=== PATIENT | male | born 1960 | race Caucasian/White ===

== ENCOUNTER → 2017-08-04 | Outpatient (CLI) | payer OTHER ==
[~2017-08-04] MED LIST: ASCO10002 PO; ASPI-482 PO; ATOR20TA58 PO; DEXL60CA2 PO; LACT1CAP29 PO; LISI1TAB7 PO; MULT1TAB52 PO; RANI150C PO; TEST5GEL29 TD
--- NOTE | 2017-08-04 14:59 | EKG ---
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
[2017-08-04 15:37] LABS: BASO # 0.1 x10^3/uL (0.0-0.2); BASO % 1 % (0-3); EOS % 4 % (0-3); HEMATOCRIT 44.9 % (39.0-53.0); HEMOGLOBIN 15.2 g/dL (13.0-17.5); LYMPH # 1.4 x10^3/uL (1.0-4.8); LYMPH % 19 % (24-48); MEAN CORPUSCULAR HEMOGLOBIN 29 pg (25-35); MEAN CORPUSCULAR HGB CONC 34 g/dL (31-37); MEAN CORPUSCULAR VOLUME 86 fL (79-100); MONO % 6 % (0-9); NEUT % 69 % (31-73); PLATELET COUNT 278 x10^3/uL (140-400); RED BLOOD COUNT 5.25 x10^6/uL (4.30-5.70); RED CELL DISTRIBUTION WIDTH 13.3 % (11.5-14.5); WHITE BLOOD COUNT 7.5 x10^3/uL (4.0-11.0)
[2017-08-04 16:15] LABS: ALBUMIN 4.1 g/dL (3.4-5.0); ALBUMIN/GLOBULIN RATIO 1.1 (1.0-1.7); CALCIUM 9.2 mg/dL (8.5-10.1); CREATININE 0.9 mg/dL (0.7-1.3); GFR 87.3; POTASSIUM 3.7 mmol/L (3.5-5.1); TOTAL BILIRUBIN 0.6 mg/dL (0.2-1.0); TOTAL PROTEIN 7.8 g/dL (6.4-8.2)
== END | disposition home or self-care (01) ==
LOC: SURGPAT 13:31
PROVIDERS: ATTEND Neurological Surgery
DX: Z01.818 Encounter for other preprocedural examination (principal); M48.061 Spinal stenosis, lumbar region without neurogenic claudication
CPT/HCPCS: 36415; 80053; 85025; 87641; 93005

== ENCOUNTER 2017-08-25 07:14 | Day surgery (SDC) | payer OTHER ==
--- NOTE | 2017-08-23 15:55 | PREOP HP ---
DATE OF SERVICE: 08/25/2017 HISTORY OF PRESENT ILLNESS: The patient is a pleasant 57-year-old man who is having difficulty with low back pain and pain which radiates into his left leg. The pain tends to radiate into the left anterior leg and thigh. He feels as though there is weakness in his left leg. He also has intermittent pain in the right hip region. His problems have been present for about 10 years, but have been slowly worsening. He says currently his pain is a 1/10, but that it has become a 7/10 at its worse. He says at the end of the day the problem is much worse than at the beginning of the day. Stretching and exercising seems to help him. He takes Advil for pain. A few years ago he underwent epidural steroid injections. PAST MEDICAL HISTORY: Hypertension. PAST SURGICAL HISTORY: A CTR in 1996 and CTR in 1997. FAMILY HISTORY: Hypertension. 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 . Exercises 2 times a week. Denies substance abuse. Denies tobacco use. Has one drink daily. Drinks tea daily. ALLERGIES: No known drug allergies. CURRENT MEDICATIONS: Atorvastatin, ranitidine, lisinopril, Dexilant, Testim, baby aspirin, multivitamin, and Advil. REVIEW OF SYSTEMS: A 12-point review of systems was obtained and is noncontributory except for that mentioned above. NEUROSURGERY EXAMINATION: GENERAL APPEARANCE: Alert, pleasant, no acute distress. HEAD: Normocephalic and atraumatic. SKIN: Warm and dry. MUSCULOSKELETAL: Lumbar paraspinal muscle bulk is normal, restricted range of motion of the lumbar spine, [id number] tenderness of lower lumbar spine with palpation, normal range of motion of the lower extremities bilaterally. EXTREMITIES: No clubbing, cyanosis or edema. NEUROLOGIC: Alert and oriented x 3, normal recent and remote memory, strength 5/5 in bilateral lower extremities, sensory was intact to light touch in bilateral lower extremities, reflexes were 1+ right knee jerk, absent left knee jerk, trace ankle jerks bilaterally, negative straight leg raising bilaterally, abnormal gait favoring his left leg. IMAGING: Reviewed. I reviewed a lumbar MRI scan. There are degenerative changes throughout the lumbar spine. At L4-L5 on the left there is foraminal disk protrusion with severe left foraminal narrowing. ASSESSMENT: Intervertebral disk disorders with radiculopathy, lumbar region. PLAN: I believe his left lumbar radicular symptoms are related to the foraminal disk protrusions at L4-L5 on the left. We spoke about options including epidural steroid injections. I discussed transfacet exposure with decompression. I explained that following that type of surgery the pain can develop, problems with chronic back pain and require further surgery including an instrumented fusion. I spoke about the technique of the operation and the rationale for decompressing the nerve root in the foramen. I spoke about HIM, about the risks. He understands. He would like to go ahead. We will make the arrangements. JOSEPH ALVARENGA MD DR: SUSAN/guadalupe JOB#: [id number] / [id number]
[~2017-08-25] VITALS: Ht 167.6 cm; Wt 79.4 kg
[~2017-08-25 07:14] MED LIST changes: +BACITRACIN 50,000 UNIT in IV NORMAL SALINE 1000ML BAG 1,000 ML IRR ONE; +HYDROmorphone 2 MG/ML VIAL IV PRN; +IV RINGERS,LACTATED 1000ML 1,000 ML IV SCH; +LIDOCAINE 1% PF 2 ML VIAL. ID PRN; +MORPHINE SULFATE 2 MG/ML DISP.SYRIN. IV PRN; +ONDANSETRON PF 4 MG/2 ML VIAL. IV PRN; +PROCHLORPERAZINE 10 MG/2 ML VIAL. IV PRN; +fentaNYL PF VIAL 100 MCG/2 ML VIAL IV PRN
[2017-08-25] MEDS ORDERED: GELATIN SPONGE SIZE 100. ONE (07:33)
[2017-08-25] MEDS ORDERED: KETOROLAC 60 MG/2 ML INJ FOR OR. ONE (07:34)
[2017-08-25] MEDS ORDERED: THROMBIN TOPICAL 20,000 UNIT SPRAY.SYRN KIT TP ONE ×3 (07:34→09:22)
[2017-08-25] MEDS ORDERED: BUPIVAC MPF-EPI 0.5%-1:200000 30 ML VIAL. ONE (07:34)
[2017-08-25] MEDS ORDERED: SILD50TA PO (07:41)
[2017-08-25] MEDS ORDERED: PROPOFOL 50 ML IV ONE ×2 (08:05→10:02)
[2017-08-25] MEDS ORDERED: DEXAMETHASONE SOD PHOS 20 MG/5 ML VIAL. ONE (08:05)
[2017-08-25] MEDS ORDERED: PROPOFOL 20 ML IV ONE (08:05)
[2017-08-25] MEDS ORDERED: ONDANSETRON PF 4 MG/2 ML VIAL. ONE (08:05)
[2017-08-25] MEDS ORDERED: LIDOCAINE 2% PF Vial for OR 5 ML VIAL. ONE (08:05)
[2017-08-25] MEDS ORDERED: MIDAZOLAM HCL/PF 2 MG/2 ML VIAL. ONE (08:06)
[2017-08-25] MEDS ORDERED: REMIFENTANIL 2 MG VIAL. IV ONE (08:06)
[2017-08-25] MEDS ORDERED: DESFLURANE > 120 MINUTES IH ONE (08:06)
[2017-08-25] MEDS ORDERED: ROCURONIUM 50 MG/5 ML VIAL. ONE (08:06)
[2017-08-25] MEDS ORDERED: PHENYLEPHRINE 10 MG/ML VIAL. ONE (08:06)
[2017-08-25] MEDS ORDERED: 0.9 % SODIUM CHLORIDE 50 ML VIAL. IJ ONE (08:06)
[2017-08-25] MEDS ORDERED: MINERAL OIL/PETROLATUM,WHITE OPHTH OINT 3.5GM TUBE. ONE (08:17)
[2017-08-25] MEDS ORDERED: GELATIN SPONGE SIZE 100. TP ONE (09:15)
[2017-08-25] MEDS ORDERED: KETOROLAC 60 MG/2 ML INJ FOR OR. INJ ONE (09:15)
[2017-08-25] MEDS ORDERED: BUPIVAC MPF-EPI 0.5%-1:200000 30 ML VIAL. INJ ONE ×2 (09:15→09:22)
[2017-08-25] MEDS ORDERED: GLYCOPYRROLATE 1 MG/5 ML VIAL. ONE (09:19)
[2017-08-25] MEDS ORDERED: NEOSTIGMINE 10 MG/10 ML VIAL. ONE (10:42)
[2017-08-25] MEDS ORDERED: fentaNYL PF VIAL 100 MCG/2 ML VIAL ONE (10:47)
--- NOTE | 2017-08-25 11:12 | DISCH ---
DISCHARGE INSTRUCTIONS Condition on Discharge Condition on Discharge: Stable Activity After Discharge Activity Instructions for Disc: Activity as tolerated, Avoid exertion Other activity instructions: no driving for a week Lifting Instructions after Dis: No heavy lifting, No pulling or pushing, Do not lift >10 pounds Diet after Discharge Additional Diet Restrictions: resume home diet Wound Incision Care Wound/Incision Care: Ice to area for comfort Other wound/incision instructi: may remove dressing in 48 hrs if dry then may shower-no soaking Contacting the DRTanner after DC Call your doctor for: Concerns you may have Follow-Up Follow up with: Dr. Alvarenga's nurse in 2 weeks [phone] JOSEPH ALVARENGA MD Aug 25, 2017 11:12
[2017-08-25] MEDS ORDERED: DOCU-109 PO (11:21)
[2017-08-25] MEDS ORDERED: HYDR-2762 PO (11:21)
[2017-08-25] MEDS ORDERED: METH-38 PO (11:21)
[2017-08-25] MEDS ORDERED: HYDROcodone/APAP 7.5/325MG 1 TAB TABLET PO PRN (11:45)
--- NOTE | 2017-08-25 12:05 | OP ---
DATE OF SURGERY: 08/25/2017 PREOPERATIVE DIAGNOSES: Herniated lumbar disc/foraminal disc herniation, L4-L5 on the left with L4 and L5 radiculopathy. POSTOPERATIVE DIAGNOSES: Herniated lumbar disc/foraminal disc herniation, L4-L5 on the left with L4 and L5 radiculopathy. OPERATION PERFORMED: Hemilaminotomy and microdiskectomy, L4-L5 plus transfacet exposure with decompression of the L4 nerve root and far lateral disc removal. The operation was done with the EMG monitoring, fluoroscopy and microscopic dissection. SURGEON: Edward Alvarenga M.D. MAKEUP SALES ADVISOR: Matias Mcdonough M.D.assisted with the surgery, assisted with the exposure, the microdiscectomy and decompression as well as the closure. OPERATIVE INDICATIONS: The patient is a very pleasant 57-year-old man who developed intractable back and left leg pain which failed conservative measures. On imaging studies, he had the above-mentioned findings and I recommended lumbar microsurgery after he failed conservative measures. He understood the surgery and the risks. He wished to go ahead. DESCRIPTION OF PROCEDURE: Following general endotracheal anesthesia, the patient was positioned prone on the Ciro frame. His lumbar region was prepped and draped in the standard fashion. EVANGELINA hose and AV impulse boots were applied for DVT prophylaxis. The microscope was draped. Fluoroscopy was draped and brought into the field. Monitoring was established. Ancef 2 grams was given less than 1 hour prior to initiation of surgery. A midline incision was made directly over the L4-L5 interspace. I dissected down the skin and subcutaneous tissue, reflected the paraspinal muscles quite far laterally on the left and then brought in the microscope. I confirmed my position fluoroscopically. I burred down a generous standard hemilaminotomy and then worked superiorly until I encountered the L4 root, which was lifted superiorly, as I followed it laterally performing a transfacet decompression. As I worked laterally, I found that there was disc at L4-L5 laterally plus large osteophytes along the inferior edge of L4 laterally, markedly compressing the root. As I worked out farther and farther laterally, I used a high-speed air drill to thin this large spur and I was able to push and break this down inferiorly, freeing up the L4 root, as I continued working laterally, removing disc material and lateral disc bulge. I found I was able to fully decompress the L4 root as it traversed laterally. I was able to palpate quite far laterally and assured myself that there were no retained disc fragments laterally and I fully decompressed that root. I then angled the patient away from me and I drilled more medially, exposing the lateral dura and the L5 root. I performed a partial foraminotomy and fully decompressed the root. I also reflected the root medially with a micro nerve root retractor and performed a discectomy with pituitary rongeurs medially. As I worked, the entire region became very well decompressed. I irrigated copiously with antibiotic solution, removed the retractor, obtained excellent hemostasis in the muscle and I closed the wound in layers with absorbable sutures. The skin was closed with 4-0 subcuticular stitch. The operation went very well. EDWARD ALVARENGA MD DR: SUSAN/guadalupe JOB#: [id number] / [id number] KRYSTLE
[2017-08-25 12:20] VITALS: BP 115/69
--- NOTE | 2017-08-26 13:56 | PATHOLOGY ---
PATHOLOGY REPORT * * * * * * * * FINAL DIAGNOSIS: Segments of fibrocartilaginous, fibroadipose, and skeletal muscle tissue and bone, lumbar disc and decompression: - Degenerative changes of fibrocartilaginous tissue. COMMENT: There is no evidence of an acute inflammatory process or malignancy. (JPM:mggladys; 08/26/2017) REPORT ELECTRONICALLY SIGNED BY: Sina Zaman M.D. DATE/TIME: 08/26/2017 13:55 * * * * * * * * GROSS PATHOLOGY: Received in formalin labeled "Erik Ambriz, lumbar disc and decompression," are multiple segments of trevizo-white, yellow, and pale brown soft and gritty tissue measuring 3.9 x 3.4 x 1.2 cm in aggregate dimensions, containing small fragments of possible bone. The tissue is submitted representatively in cassette A1, following decalcification. (TSD; 08/25/2017) INITIAL CPT CODE(S): A; 58314, 48559 Professional services performed [place] [facility] [place] [address] Technical services performed by [facility] at [address] [place] [address] [address], [place] [address]. SPECIMEN(S) RECEIVED: A.Lumbar disc and decompression CLINICAL HISTORY: Lumbar herniated disc, stenosis PATIENT: ERIK AMBRIZ /AGE: 6 1960 (Age: 57) PATIENT #: [id number] ALT CASE #: SPECIMEN COLLECTION DATE: 08/25/2017 SPECIMEN RECEIVED DATE: 08/25/2017 [facility] - [address] [place] [address] - PHONE: [phone] * * * END OF REPORT * * *
== END 2017-08-25 12:30 | disposition home or self-care (01) ==
LOC: SURG 07:14 → EDUNIT# 08:30 → SURG 12:30
PROVIDERS: ATTEND Neurological Surgery
DX: M51.16 Intervertebral disc disorders with radiculopathy, lumbar region (principal); I10 Essential (primary) hypertension; M19.91 Primary osteoarthritis, unspecified site; Z87.442 Personal history of urinary calculi; Z98.890 Other specified postprocedural states; Z86.69 Personal history of other diseases of the nervous system and sense organs; Z72.89 Other problems related to lifestyle
CPT/HCPCS: 63030; 76000; J0690; J1100; J1885; J2250; J2405; J2704; J2710; J3010; J3490; J7030; 88304; 88311; J2001